=== PATIENT | male | born 1960 | race Caucasian/White ===

== ENCOUNTER 2016-09-19 20:18 | Inpatient (IN) | payer SELFPAY ==
[2016-09-19 20:25] VITALS: BMI 20.2
--- NOTE | 2016-09-19 21:56 | DR.GENAD ---
HPI - PCP Primary Care Physician: JACQUELINE - Complaint/Symptoms Chief Complaint:: LEFT LEG AND FOOT SWELLING AND PAIN X 4 DAYS - Source History Provided: Patient - Mode of Arrival Mode of Arrival: Ambulatory - Timing Onset of Chief Complaint: 09/16/16 PMH - PMH Past Medical History: No Past Surgical History: Yes Surgical History: Appendectomy, Tonsillectomy Past Surgical History Comment: GI ULCERS - Family History History of Family Medical Conditions: No - Social History Does patient currently use any type of tobacco product: Yes Have you used tobacco products in the last 12 months: Yes Type of Tobacco Use: Cigarettes Does any household member use tobacco: Yes Alcohol Use: Heavy Do you use any recreational Drugs:: Yes Lives With: Alone Lives Where: Home - infectious screening In the last 2 months have you had wt loss of >10#?: NO Have you had fever, night sweats or hemotysis?: No Have you traveled outside the country in the last 6 months?: No Isolation: Standard ROS - Review of Systems Eyes: No Symptoms Reported ENTM: No Symptoms Reported Respiratoy: No Symptoms Reported Cardiovascular: No Symptoms Reported Gastrointestinal/Abdominal: No Symptoms Reported Genitourinary: No Symptoms Reported Neurological: No Symptoms Reported Musculoskeletal: No Symptoms Reported, Leg (left swollen ) Integumentary: No Symptoms Reported Hematologic/Lymphatic: No Symptoms Reported Endocrine: No Symptoms Reported Psychiatric: No Symptoms Reported All Other Systems: Reviewed and Negative PE - Vital Signs Vitals: Temperature 97.9 F Pulse Rate 100 Respiratory Rate 18 Blood Pressure 137/100 O2 Sat by Pulse Oximetry 98 - General Limitations: No Limitations General Appearance: Alert, In No Apparent Distress - Head Head Exam: Normal Inspection, Atraumatic - Eyes Eye exam: Normal Appearance, PERRL, EOMI - ENT ENT Exam: Normal Exam, Normal Oropharynx External Ear Exam: Normal External Inspection TM/Canal Exam: Bilateral Normal Nose Exam: Normal Nose Exam Mouth Exam: Normal Inspection Throat Exam: Normal Inspection - Neck Neck Exam: Normal Inspection, Full ROM - Chest Chest Inspection: Normal Inspection - Respiratory Respiratory Exam: Normal Lung Sounds Bilat Respiratory Exam: Bilateral Clear to Auscultation - Cardiovascular Cardiovascular Exam: Regular Rate, Normal Rhythm - Abdominal Exam Abdominal Exam: Normal Inspection, Normal Bowel Sounds Abdominal Tenderness: negative: RUQ, RLQ, LUQ, LLQ, Epigastrium, Suprapubic, Diffuse, Mild, Moderate, Severe, Other - Extremities Extremities Exam: Normal Inspection, Edema, Calf Tenderness (left lower extremity) - Back Back Exam: Normal Inspection - Neurologic Neurological Exam: Alert, Oriented X3, CN II-XII Intact - Psychiatric Psychiatric Exam: Normal Affect - Skin Skin Exam: Warm, Dry, Intact ROR - Labs Reviewed Result Diagrams: 09/19/16 22:05 09/19/16 22:05 Laboratory: WBC 5.7 X10^3/uL (3.6-10.0) 09/19/16 22:05 RBC 4.88 X10^6/uL (4.7-6.0) 09/19/16 22:05 Hgb 15.4 g/dL (13.5-18.0) 09/19/16 22:05 Hct 44.2 % (42.0-54.0) 09/19/16 22:05 MCV 90.6 fL (80.0-100.0) 09/19/16 22:05 MCH 31.6 pg (27.0-34.0) 09/19/16 22:05 MCHC 34.8 g/dL (33.0-35.0) 09/19/16 22:05 RDW 14.2 % (11.6-16.5) 09/19/16 22:05 Plt Count 86 X10^3/uL (150.0-450.0) L 09/19/16 22:05 MPV 7.5 fL (7.4-11.0) 09/19/16 22:05 Neut % 53.7 % (42.0-75.0) 09/19/16 22:05 Lymph % 38.2 % (21.0-51.0) 09/19/16 22:05 [place] % 6.5 % (0.0-13.0) 09/19/16 22:05 Eos % 0.8 % (0.9-2.9) L 09/19/16 22:05 Baso % 0.8 % (0.2-1.0) 09/19/16 22:05 Neut # 3.0 x10^3/uL (2.2-4.8) 09/19/16 22:05 Lymph # 2.2 X10^3/uL (1.3-2.9) 09/19/16 22:05 [place] # 0.4 x10^3/uL (0.3-0.8) 09/19/16 22:05 Eos # 0.0 x10^3/uL (0.0-0.2) 09/19/16 22:05 Baso # 0.0 X10^3/uL (0.0-0.1) 09/19/16 22:05 Absolute Nucleated RBC 0.1 /100WBC 09/19/16 22:05 D-Dimer 4880 ng/mL (0-400) H* 09/19/16 22:05 Sodium 134 mmol/L (136-145) L 09/19/16 22:05 Corrected Sodium TNP 09/19/16 22:05 Potassium 3.7 mmol/L (3.5-5.1) 09/19/16 22:05 Chloride 97 mmol/L (98-107) L 09/19/16 22:05 Carbon Dioxide 28.5 mmol/L (21-32) 09/19/16 22:05 BUN 3 mg/dL (7-18) L 09/19/16 22:05 Creatinine 0.86 mg/dL (0.70-1.30) 09/19/16 22:05 Est GFR (MDRD) Af Amer > 60 (>60) 09/19/16 22:05 Est GFR (MDRD) Non-Af > 60 (>60) 09/19/16 22:05 Glucose 98 mg/dL (65-99) 09/19/16 22:05 Calcium 8.6 mg/dL (8.5-10.1) 09/19/16 22:05 Corrected Calcium TNP 09/19/16 22:05 Total Bilirubin 0.50 mg/dL (0.2-1.0) 09/19/16 22:05 AST 73 Units/L (15-37) H 09/19/16 22:05 ALT 63 Units/L (12-78) 09/19/16 22:05 Alkaline Phosphatase 98 Units/L (46-116) 09/19/16 22:05 Total Protein 7.1 g/dL (6.4-8.2) 09/19/16 22:05 Albumin 3.6 g/dL (3.4-5.0) 09/19/16 22:05 Globulin 3.5 g/dL (2.5-4.5) 09/19/16 22:05 Albumin/Globulin Ratio 1.0 Ratio (1.1-2.1) L 09/19/16 22:05 - XRAY XRAY Interpreted by: Radiologist (Lower extremity swelling/Pain: Evaluation of the deep veins of the left lower extremity from the common femoral vein through the popliteal vein demonstrated noncompresssibility of the distal superficial femoral vein. There was normal compressibility throughout the remainder of the deep venous system. Findings are consistent with a deep venous thrombus in the distal superficial femoral vein) - Diagnosis Discharge Problem: Deep venous thrombosis of distal vein of left lower extremity Qualifiers: Chronicity: acute Qualified Code(s): I82.4Z2 - Acute embolism and thrombosis of unspecified deep veins of left distal lower extremity - Discharge Plan Condition: Stable - Follow ups/Referrals Follow ups/Referrals: NFD,None [Primary Care Provider] - 3 days - Instructions
[2016-09-19 22:16] LABS: BASOPHILS % (AUTO) 0.8 % (0.2-1.0); EOSINOPHILS % (AUTO) 0.8 % (0.9-2.9); HEMATOCRIT 44.2 % (42.0-54.0); HEMOGLOBIN 15.4 g/dL (13.5-18.0); LYMPHOCYTES # (AUTO) 2.2 X10^3/uL (1.3-2.9); LYMPHOCYTES % (AUTO) 38.2 % (21.0-51.0); MEAN CORPUSCULAR HEMOGLOBIN 31.6 pg (27.0-34.0); MEAN CORPUSCULAR HGB CONC 34.8 g/dL (33.0-35.0); MEAN CORPUSCULAR VOLUME 90.6 fL (80.0-100.0); MEAN PLATELET VOLUME 7.5 fL (7.4-11.0); MONOCYTES # (AUTO) 0.4 x10^3/uL (0.3-0.8); MONOCYTES % (AUTO) 6.5 % (0.0-13.0); NEUTROPHILS % (AUTO) 53.7 % (42.0-75.0); PLATELET COUNT 86 X10^3/uL (150.0-450.0); RED BLOOD COUNT 4.88 X10^6/uL (4.7-6.0); RED CELL DISTRIBUTION WIDTH 14.2 % (11.6-16.5); WHITE BLOOD COUNT 5.7 X10^3/uL (3.6-10.0)
[2016-09-19 22:31] LABS: ALANINE AMINOTRANSFERASE 63 Units/L (12-78); ALBUMIN 3.6 g/dL (3.4-5.0); ALKALINE PHOSPHATASE 98 Units/L (46-116); ASPARTATE AMINO TRANSFERASE 73 Units/L (15-37); BLOOD UREA NITROGEN 3 mg/dL (7-18); CALCIUM 8.6 mg/dL (8.5-10.1); CARBON DIOXIDE 28.5 mmol/L (21-32); CHLORIDE 97 mmol/L (98-107); CREATININE 0.86 mg/dL (0.70-1.30); GLUCOSE 98 mg/dL (65-99); SODIUM 134 mmol/L (136-145); TOTAL PROTEIN 7.1 g/dL (6.4-8.2); eGFR BLACK RACES > 60 (>60); eGFR NON BLACK RACES > 60 (>60)
[2016-09-19 22:44] LABS: D DIMER 4880 ng/mL (0-400)
[2016-09-19] MEDS ORDERED: TYLENOL #3 TAB (W/CODEINE) PO ONE ×2 (22:55→22:57)
--- NOTE | 2016-09-19 23:36 | VAS ---
Exam: Left lower extremity ultrasound exam History: Lower extremity swelling/pain Comparison: None Technique: Real-time duplex scan of the lower extremity venous system was performed using B-mode/gra yscale imaging, Doppler spectral analysis, and color flow. Findings: Evaluation of the deep veins of the left lower extremity from the common femoral vein thr ough the popliteal vein demonstrated noncompressibility of the distal superficial femoral vein. The re was normal compressibility throughout the remainder of the deep venous system. Conclusion: Findings are consistent with a deep venous thrombus in the distal superficial femoral vein. Reported By:
[2016-09-19] MEDS ORDERED: MILK OF MAGNESIA PO PRN (23:58)
[2016-09-19] MEDS ORDERED: KAOPECTATE (NEW FORMULA) PO PRN (23:58)
[2016-09-19] MEDS ORDERED: MAALOX or MYLANTA PO PRN (23:58)
[2016-09-19] MEDS ORDERED: MOTRIN TAB 800 MG PO PRN (23:58)
[2016-09-19] MEDS ORDERED: PHENOBARBITAL SODIUM INJ 65 MG VIAL IM PRN (23:58)
[2016-09-20] MEDS: LOVENOX INJ 60 MG SYR SC SCH ×3 (00:12→20:37)
[2016-09-20] MEDS: AMBIEN PO SCH (01:32)
[2016-09-20] MEDS: NICODERM PATCH 21 MG/24 HR TD SCH ×2 (02:01→08:31)
[2016-09-20] MEDS: MAGNESIUM SULFATE 50% INJ IM SCH ×2 (02:33→08:32)
[2016-09-20] MEDS ORDERED: PREVNAR 13 IM ONE (03:05)
[2016-09-20] MEDS: PHENOBARBITAL TAB 30 MG (32.4MG) PO SCH ×4 (08:29→20:37)
[2016-09-20] MEDS ORDERED: THIAMINE HCL INJ IM SCH (09:00)
[2016-09-20] MEDS ORDERED: NS 100 ML IV 100 ML IV ONE (09:41)
--- NOTE | 2016-09-20 10:36 | CT ---
HISTORY: The DVT and left distal superficial femoral vein. Study: CT chest with contrast Comparison: Left lower extremity ultrasound dated September 19, 2016. Technique: Multiple axial images of the chest were obtained from the thoracic inlet to the upper abd omen after the administration of IV contrast. Dose reduction techniques including Automated Exposur e Control (AEC) and adjustment of mA and kV were utilized. Findings: The mediastinum does not demonstrate significant pathological lymphadenopathy. There is no paracard ial effusion observed. The thoracic aorta is normal in its contour without evidence for aneurysmal dilatation. Tiny filling defect within a subsegmental branch of the left pulmonary artery within th e lingula (series 4 images 57-59 and series 8 images 18 and 19). No other obvious filling defects. T here is some reflux of contrast into the IVC. This may represent some right heart failure. No obviou s RV strain. Biapical scarring. Evaluation of the lung parenchyma fails to demonstrate focal consolidation or eff usion. No pulmonary nodule or mass can be identified. The bony thorax is unremarkable in its appea dario. Diffuse fatty infiltration of the liver, with focal fatty sparing at the gallbladder fossa. Multiple surgical clips seen about the distal esophagus. Otherwise, the visualized portions of the u pper abdomen are grossly unremarkable. IMPRESSION: 1. Tiny filling defect within a subsegmental branch of the left pulmonary artery consistent with pu lmonary embolus. No other filling defects are noted. 2. Other chronic findings as above. Reported By:
--- NOTE | 2016-09-20 10:38 | RAD ---
HISTORY: Left ankle pain, nontraumatic Study: Left ankle three view Comparison: None Findings: No acute cortical disruption or dislocation can be identified. The ankle mortise remains well align ed. No significant soft tissue swelling or injury can be seen. The visualized portions of the talu s and calcaneus are unremarkable. IMPRESSION: 1. Negative exam. Reported By:
--- NOTE | 2016-09-20 10:39 | RAD ---
HISTORY: Left foot pain, nontraumatic Study: Left foot three view Comparison: None Findings: No acute cortical disruption or dislocation can be identified. No significant soft tissue swelling or injury can be seen. The visualized portions of the talus and calcaneus are unremarkable. The michelle nts are normal. IMPRESSION: 1. Negative exam. Reported By:
[2016-09-20] MEDS: PERCOCET TAB 5/325 MG PO PRN ×2 (12:28→19:19)
--- NOTE | 2016-09-20 17:19 | DR.H&P ---
H&P - History & Physical for Day of: H&P Date: 09/19/16 - Chief Complaint Chief Complaint: SEVERE LEFT LOWER LEG/FOOT PAIN - Allergies Allergies/Adverse Reactions: Allergies Allergy/AdvReac Type Severity Reaction Status Date / Time No Known Drug Allergy Allergy Verified 09/19/16 20:25 - History of Present Illness History of Present Illness: 55 WM ADMITTED FROM ER WITH ACUTE LLE DVT. PT STATES HE HAS HAD INCREASE LLE PAIN AND SWELLING FOR LAST 3-4 DAYS, PT UNABLE TO BEAR WEIGHT DO TO PAIN. PT ADMITTED FOR LOVENOX THERAPY AND TREATMENT OF ETOH INTOXICATION. PT HX PMH OF TOBACCO ABUSE AND ETOH USE. PT DENIES HTN OR DM. - Past Medical History Past Medical History: GERD - Past Surgical History Surgical History: Appendectomy, Tonsillectomy - Family History Family Medical History: Diabetes Mellitus, Cancer, [place], Heart Failure, Hypertension - Social History Does patient currently use any type of tobacco product: Yes Have you used tobacco products in the last 12 months: Yes Type of Tobacco Use: Cigarettes How many years tobacco product used: 40 Does any household member use tobacco: No Alcohol Use: DAILY Drug Use: None - Medications Home Medications: NK [NK] 09/19/16 [History Confirmed 09/19/16] - Review of Systems Constitutional: Weakness Eyes: No Symptoms Reported ENT: No Symptoms Reported Respiratory: Shortness of Breath Cardiovascular: No Symptoms Reported Gastrointestinal: No Symptoms Reported Genitourinary: No Symptoms Reported Musculoskeletal: Leg Pain, Foot Pain Skin: No Symptoms Reported Neurological: No Symptoms Reported - Physical Exam Vital Signs: Temperature 99.7 F Pulse Rate [Right] 62 Respiratory Rate 18 Blood Pressure [Right Arm] 111/77 O2 Sat by Pulse Oximetry 97 Oriented: Normal Eyes: Normal Ear: Normal Nose: Normal Throat: Normal Respiratory: RLL Diminished, LLL Diminished Cardiovascular: Normal : Normal Auscultation: Bowel Sounds: Normal Palpation: Normal Tenderness: Normal Skin: Red (LLE), Tender, Hot Musculoskeletal: Left, Leg, Ankle, Foot Psychiatric: Anxiety Speech Pattern: Clear, Appropriate - Assessment/Plan (1) Deep venous thrombosis of distal vein of left lower extremity Qualifiers: Chronicity: acute Qualified Code(s): I82.4Z2 - Acute embolism and thrombosis of unspecified deep veins of left distal lower extremity Status: Acute Plan: ADMIT FOR TREATMENT OF ACUTE DVT, DETOX PROTOCOL. REPEAT AM LABS. SUPPLEMENTAL O2, CARDIAC MONITORING (2) Elevated ETOH level Qualifiers: Blood alcohol level: B Status: Acute
--- NOTE | 2016-09-20 17:23 | PCM.PROG ---
Progress Note - Progress Note for Day of Date: 09/20/16 - Subjective Subjective: LLE PAIN - Past Medical Family Social History Past Med/Fam/Surg Hx: No changes since H&P Allergies: Allergies No Known Drug Allergy Allergy (Verified 09/19/16 20:25) - Review of Systems ROS: No change since H&P - Vital Signs and I&O's Vital Signs: Temperature 99.7 F Pulse Rate [Right] 62 Respiratory Rate 18 Blood Pressure [Right Arm] 111/77 O2 Sat by Pulse Oximetry 97 Intake and Output: Intake & Output 09/18/16 09/19/16 09/20/16 09/21/16 11:59 11:59 11:59 11:59 Intake Total 440 1530 Output Total 200 1000 Balance 240 530 - Physical Exam Oriented: Normal Eyes: Normal Ear: Normal Nose: Normal Throat: Normal Respiratory: Wheezes (BILATERAL LOWER EXP WHEEZES) Cardiovascular: Normal : Normal Auscultation: Bowel Sounds: Normal Tenderness: Normal Skin: Red (LLE), Tender, Hot Musculoskeletal: Left, Leg, Ankle, Foot Psychiatric: Anxiety Mood Description: Anxious Speech Pattern: Clear, Appropriate - Laboratory and Diagnostics Result Diagrams: 09/19/16 22:05 09/19/16 22:05 Labs: Laboratory WBC 5.7 X10^3/uL (3.6-10.0) 09/19/16 22:05 RBC 4.88 X10^6/uL (4.7-6.0) 09/19/16 22:05 Hgb 15.4 g/dL (13.5-18.0) 09/19/16 22:05 Hct 44.2 % (42.0-54.0) 09/19/16 22:05 MCV 90.6 fL (80.0-100.0) 09/19/16 22:05 MCH 31.6 pg (27.0-34.0) 09/19/16 22:05 MCHC 34.8 g/dL (33.0-35.0) 09/19/16 22:05 RDW 14.2 % (11.6-16.5) 09/19/16 22:05 Plt Count 86 X10^3/uL (150.0-450.0) L 09/19/16 22:05 MPV 7.5 fL (7.4-11.0) 09/19/16 22:05 Neut % 53.7 % (42.0-75.0) 09/19/16 22:05 Lymph % 38.2 % (21.0-51.0) 09/19/16 22:05 [place] % 6.5 % (0.0-13.0) 09/19/16 22:05 Eos % 0.8 % (0.9-2.9) L 09/19/16 22:05 Baso % 0.8 % (0.2-1.0) 09/19/16 22:05 Neut # 3.0 x10^3/uL (2.2-4.8) 09/19/16 22:05 Lymph # 2.2 X10^3/uL (1.3-2.9) 09/19/16 22:05 [place] # 0.4 x10^3/uL (0.3-0.8) 09/19/16 22:05 Eos # 0.0 x10^3/uL (0.0-0.2) 09/19/16 22:05 Baso # 0.0 X10^3/uL (0.0-0.1) 09/19/16 22:05 Absolute Nucleated RBC 0.1 /100WBC 09/19/16 22:05 INR Target Range - 09/19/16 22:05 INR 1.02 (0.8-1.3) 09/19/16 22:05 PTT 32.0 SECONDS (22.9-36.5) 09/19/16 22:05 PTT Comment - 09/19/16 22:05 D-Dimer 4880 ng/mL (0-400) H* 09/19/16 22:05 Sodium 134 mmol/L (136-145) L 09/19/16 22:05 Corrected Sodium TNP 09/19/16 22:05 Potassium 3.7 mmol/L (3.5-5.1) 09/19/16 22:05 Chloride 97 mmol/L (98-107) L 09/19/16 22:05 Carbon Dioxide 28.5 mmol/L (21-32) 09/19/16 22:05 BUN 3 mg/dL (7-18) L 09/19/16 22:05 Creatinine 0.86 mg/dL (0.70-1.30) 09/19/16 22:05 Est GFR (MDRD) Af Amer > 60 (>60) 09/19/16 22:05 Est GFR (MDRD) Non-Af > 60 (>60) 09/19/16 22:05 Glucose 98 mg/dL (65-99) 09/19/16 22:05 Calcium 8.6 mg/dL (8.5-10.1) 09/19/16 22:05 Corrected Calcium TNP 09/19/16 22:05 Total Bilirubin 0.50 mg/dL (0.2-1.0) 09/19/16 22:05 AST 73 Units/L (15-37) H 09/19/16 22:05 ALT 63 Units/L (12-78) 09/19/16 22:05 Alkaline Phosphatase 98 Units/L (46-116) 09/19/16 22:05 Total Protein 7.1 g/dL (6.4-8.2) 09/19/16 22:05 Albumin 3.6 g/dL (3.4-5.0) 09/19/16 22:05 Globulin 3.5 g/dL (2.5-4.5) 09/19/16 22:05 Albumin/Globulin Ratio 1.0 Ratio (1.1-2.1) L 09/19/16 22:05 Ethyl Alcohol mg/dL 367 mg/dL (0-19.9) H 09/19/16 00:28 - Plan (1) Deep venous thrombosis of distal vein of left lower extremity Status: Acute Qualifiers: Chronicity: acute Qualified Code(s): I82.4Z2 - Acute embolism and thrombosis of unspecified deep veins of left distal lower extremity Plan: CONTINUE LOVENOX, CTA LUNG TODAY R/O PE. RESP CONSULT, SUPPLEMENTAL O2 (2) Elevated ETOH level Status: Acute Qualifiers: Blood alcohol level: B Plan: CONTINUE DETOX PROTOCOL
[2016-09-20] MEDS: LIBRIUM PO PRN (19:20)
[2016-09-21] MEDS: AMBIEN PO SCH ×3 (00:33→21:24)
[2016-09-21] MEDS: PERCOCET TAB 5/325 MG PO PRN ×4 (01:48→21:23)
--- NOTE | 2016-09-21 06:03 | RAD ---
HISTORY: Chest pain, COPD Study: Chest one view Comparison: None Findings: The trachea is midline. The cardiac silhouette is unremarkable. The lungs are clear without focal infiltrate or effusion. The bony thorax is unremarkable. IMPRESSION: 1. No acute cardiopulmonary disease. Reported By:
[2016-09-21 06:25] LABS: BASOPHILS % (AUTO) 0.6 % (0.2-1.0); EOSINOPHILS # (AUTO) 0.1 x10^3/uL (0.0-0.2); EOSINOPHILS % (AUTO) 2.3 % (0.9-2.9); HEMATOCRIT 42.2 % (42.0-54.0); HEMOGLOBIN 14.5 g/dL (13.5-18.0); LYMPHOCYTES # (AUTO) 1.8 X10^3/uL (1.3-2.9); MEAN CORPUSCULAR HEMOGLOBIN 31.5 pg (27.0-34.0); MEAN CORPUSCULAR HGB CONC 34.4 g/dL (33.0-35.0); MEAN CORPUSCULAR VOLUME 91.4 fL (80.0-100.0); MEAN PLATELET VOLUME 8.4 fL (7.4-11.0); MONOCYTES # (AUTO) 0.5 x10^3/uL (0.3-0.8); MONOCYTES % (AUTO) 9.9 % (0.0-13.0); NEUTROPHILS # (AUTO) 2.3 x10^3/uL (2.2-4.8); NEUTROPHILS % (AUTO) 48.2 % (42.0-75.0); PLATELET COUNT 73 X10^3/uL (150.0-450.0); RED BLOOD COUNT 4.62 X10^6/uL (4.7-6.0); RED CELL DISTRIBUTION WIDTH 14.6 % (11.6-16.5); WHITE BLOOD COUNT 4.7 X10^3/uL (3.6-10.0)
[2016-09-21 06:36] LABS: TOTAL PSA 0.97 ng/mL (0.13-4.0)
[2016-09-21 06:43] LABS: ALANINE AMINOTRANSFERASE 55 Units/L (12-78); ALBUMIN 3.2 g/dL (3.4-5.0); ALKALINE PHOSPHATASE 95 Units/L (46-116); ASPARTATE AMINO TRANSFERASE 53 Units/L (15-37); BLOOD UREA NITROGEN 4 mg/dL (7-18); CALCIUM 8.6 mg/dL (8.5-10.1); CARBON DIOXIDE 30.7 mmol/L (21-32); CHLORIDE 102 mmol/L (98-107); COR CA(FOR HYPOALB) 9.2 mg/dL (8.5-10.1); CREATININE 0.78 mg/dL (0.70-1.30); GLUCOSE 77 mg/dL (65-99); SODIUM 137 mmol/L (136-145); TOTAL PROTEIN 6.5 g/dL (6.4-8.2); eGFR BLACK RACES > 60 (>60); eGFR NON BLACK RACES > 60 (>60)
[2016-09-21] MEDS: LOVENOX INJ 60 MG SYR SC SCH ×2 (09:33→21:22)
[2016-09-21] MEDS: NICODERM PATCH 21 MG/24 HR TD SCH (09:34)
[2016-09-21] MEDS: PHENOBARBITAL TAB 30 MG (32.4MG) PO SCH ×4 (09:34→21:23)
[2016-09-21] MEDS: LIBRIUM PO PRN (11:28)
--- NOTE | 2016-09-21 13:19 | PCM.PROG ---
Progress Note - Progress Note for Day of Date: 09/21/16 - Subjective Subjective: LLE PAIN, ANXIOUS. PT HAS PMH DAILY ETOH DRINKER AND STATES HE IS QUITING. PT HAS HX GASTRIC ULCERS. STARTED ON PROTONIX BID, CONTINUE LOVENOX. REPEAT AM LABS - Past Medical Family Social History Past Med/Fam/Surg Hx: No changes since H&P Allergies: Allergies No Known Drug Allergy Allergy (Verified 09/19/16 20:25) - Review of Systems ROS: No change since H&P - Vital Signs and I&O's Vital Signs: Temperature 98.6 F Pulse Rate [Right] 62 Respiratory Rate 18 Blood Pressure [Right Arm] 130/77 O2 Sat by Pulse Oximetry 98 Intake and Output: Intake & Output 09/19/16 09/20/16 09/21/16 09/22/16 11:59 11:59 11:59 11:59 Intake Total 440 2080 Output Total 200 1000 Balance 240 1080 - Physical Exam Oriented: Normal Eyes: Normal Ear: Normal Nose: Normal Throat: Normal Respiratory: Wheezes (BILATERAL LOWER EXP WHEEZES) Cardiovascular: Normal : Normal Auscultation: Bowel Sounds: Normal Tenderness: Normal Skin: Red (LLE), Tender, Hot Musculoskeletal: Left, Leg, Ankle, Foot Psychiatric: Anxiety Mood Description: Anxious Speech Pattern: Clear, Appropriate - Laboratory and Diagnostics Result Diagrams: 09/21/16 04:50 09/21/16 04:50 Labs: Laboratory WBC 4.7 X10^3/uL (3.6-10.0) 09/21/16 04:50 RBC 4.62 X10^6/uL (4.7-6.0) L 09/21/16 04:50 Hgb 14.5 g/dL (13.5-18.0) 09/21/16 04:50 Hct 42.2 % (42.0-54.0) 09/21/16 04:50 MCV 91.4 fL (80.0-100.0) 09/21/16 04:50 MCH 31.5 pg (27.0-34.0) 09/21/16 04:50 MCHC 34.4 g/dL (33.0-35.0) 09/21/16 04:50 RDW 14.6 % (11.6-16.5) 09/21/16 04:50 Plt Count 73 X10^3/uL (150.0-450.0) L 09/21/16 04:50 MPV 8.4 fL (7.4-11.0) 09/21/16 04:50 Neut % 48.2 % (42.0-75.0) 09/21/16 04:50 Lymph % 39.0 % (21.0-51.0) 09/21/16 04:50 [place] % 9.9 % (0.0-13.0) 09/21/16 04:50 Eos % 2.3 % (0.9-2.9) 09/21/16 04:50 Baso % 0.6 % (0.2-1.0) 09/21/16 04:50 Neut # 2.3 x10^3/uL (2.2-4.8) 09/21/16 04:50 Lymph # 1.8 X10^3/uL (1.3-2.9) 09/21/16 04:50 [place] # 0.5 x10^3/uL (0.3-0.8) 09/21/16 04:50 Eos # 0.1 x10^3/uL (0.0-0.2) 09/21/16 04:50 Baso # 0.0 X10^3/uL (0.0-0.1) 09/21/16 04:50 Absolute Nucleated RBC 0.1 /100WBC 09/21/16 04:50 INR Target Range - 09/19/16 22:05 INR 1.02 (0.8-1.3) 09/19/16 22:05 PTT 32.0 SECONDS (22.9-36.5) 09/19/16 22:05 PTT Comment - 09/19/16 22:05 D-Dimer 4880 ng/mL (0-400) H* 09/19/16 22:05 Sodium 137 mmol/L (136-145) 09/21/16 04:50 Corrected Sodium TNP 09/21/16 04:50 Potassium 3.6 mmol/L (3.5-5.1) 09/21/16 04:50 Chloride 102 mmol/L (98-107) 09/21/16 04:50 Carbon Dioxide 30.7 mmol/L (21-32) 09/21/16 04:50 BUN 4 mg/dL (7-18) L 09/21/16 04:50 Creatinine 0.78 mg/dL (0.70-1.30) 09/21/16 04:50 Est GFR (MDRD) Af Amer > 60 (>60) 09/21/16 04:50 Est GFR (MDRD) Non-Af > 60 (>60) 09/21/16 04:50 Glucose 77 mg/dL (65-99) 09/21/16 04:50 Calcium 8.6 mg/dL (8.5-10.1) 09/21/16 04:50 Corrected Calcium 9.2 mg/dL (8.5-10.1) 09/21/16 04:50 Total Bilirubin 0.80 mg/dL (0.2-1.0) 09/21/16 04:50 AST 53 Units/L (15-37) H 09/21/16 04:50 ALT 55 Units/L (12-78) 09/21/16 04:50 Alkaline Phosphatase 95 Units/L (46-116) 09/21/16 04:50 Total Protein 6.5 g/dL (6.4-8.2) 09/21/16 04:50 Albumin 3.2 g/dL (3.4-5.0) L 09/21/16 04:50 Globulin 3.3 g/dL (2.5-4.5) 09/21/16 04:50 Albumin/Globulin Ratio 1.0 Ratio (1.1-2.1) L 09/21/16 04:50 Total PSA 0.97 ng/mL (0.13-4.0) 09/21/16 04:50 Ethyl Alcohol mg/dL 367 mg/dL (0-19.9) H 09/19/16 00:28 - Plan (1) Deep venous thrombosis of distal vein of left lower extremity Status: Acute Qualifiers: Chronicity: acute Qualified Code(s): I82.4Z2 - Acute embolism and thrombosis of unspecified deep veins of left distal lower extremity Plan: CONTINUE LOVENOX, CTA LUNG TODAY R/O PE. RESP CONSULT, SUPPLEMENTAL O2 (2) Elevated ETOH level Status: Acute Qualifiers: Blood alcohol level: B Plan: CONTINUE DETOX PROTOCOL (3) GERD (gastroesophageal reflux disease) Status: Acute Qualifiers: Esophagitis presence: E Plan: HX GASTRIC ULCERS. PROTONIX BID (4) Anxiety Status: Acute Plan: LEXAPRO 10MG PO DAILY
[2016-09-21] MEDS ORDERED: LEXAPRO ONE (15:02)
[2016-09-21] MEDS: PROTONIX INJ 40 MG VIAL IVP SCH ×2 (15:12→21:22)
[2016-09-21] MEDS: LEXAPRO PO SCH (15:12)
[2016-09-22] MEDS: PERCOCET TAB 5/325 MG PO PRN (05:11)
[2016-09-22] MEDS: LIBRIUM PO PRN (05:11)
[2016-09-22 06:10] LABS: BASOPHILS % (AUTO) 0.6 % (0.2-1.0); EOSINOPHILS # (AUTO) 0.2 x10^3/uL (0.0-0.2); EOSINOPHILS % (AUTO) 3.4 % (0.9-2.9); HEMOGLOBIN 14.9 g/dL (13.5-18.0); LYMPHOCYTES # (AUTO) 1.9 X10^3/uL (1.3-2.9); LYMPHOCYTES % (AUTO) 33.9 % (21.0-51.0); MEAN CORPUSCULAR HEMOGLOBIN 31.6 pg (27.0-34.0); MEAN CORPUSCULAR HGB CONC 34.6 g/dL (33.0-35.0); MEAN CORPUSCULAR VOLUME 91.5 fL (80.0-100.0); MEAN PLATELET VOLUME 8.7 fL (7.4-11.0); MONOCYTES # (AUTO) 0.4 x10^3/uL (0.3-0.8); MONOCYTES % (AUTO) 7.9 % (0.0-13.0); NEUTROPHILS % (AUTO) 54.2 % (42.0-75.0); PLATELET COUNT 76 X10^3/uL (150.0-450.0); RED CELL DISTRIBUTION WIDTH 14.3 % (11.6-16.5); WHITE BLOOD COUNT 5.6 X10^3/uL (3.6-10.0)
--- NOTE | 2016-09-22 06:31 | RAD ---
HISTORY: Shortness of breath Study: Chest one view Comparison: September 21, 2016 Findings: The trachea is midline. The cardiac silhouette is unremarkable. The lungs are clear without focal infiltrate or effusion. The bony thorax is unremarkable. IMPRESSION: 1. No acute cardiopulmonary disease. Reported By:
[2016-09-22 06:32] LABS: ALANINE AMINOTRANSFERASE 45 Units/L (12-78); ALBUMIN 3.1 g/dL (3.4-5.0); ALKALINE PHOSPHATASE 92 Units/L (46-116); ASPARTATE AMINO TRANSFERASE 42 Units/L (15-37); BLOOD UREA NITROGEN 6 mg/dL (7-18); CALCIUM 8.6 mg/dL (8.5-10.1); CARBON DIOXIDE 26.8 mmol/L (21-32); CHLORIDE 101 mmol/L (98-107); COR CA(FOR HYPOALB) 9.3 mg/dL (8.5-10.1); CREATININE 0.72 mg/dL (0.70-1.30); GLUCOSE 67 mg/dL (65-99); SODIUM 139 mmol/L (136-145); TOTAL PROTEIN 6.4 g/dL (6.4-8.2); eGFR BLACK RACES > 60 (>60); eGFR NON BLACK RACES > 60 (>60)
[2016-09-22] MEDS ORDERED: LEXAPRO ONE (08:43)
[2016-09-22] MEDS ORDERED: FLEXERIL TAB 10 MG PO PRN (09:34)
[2016-09-22] MEDS: NICODERM PATCH 21 MG/24 HR TD SCH (09:48)
[2016-09-22] MEDS: PHENOBARBITAL TAB 30 MG (32.4MG) PO SCH ×4 (10:04→21:33)
[2016-09-22] MEDS: TORADOL 30 MG VIAL IVP SCH ×3 (10:04→21:34)
[2016-09-22] MEDS: LOVENOX INJ 60 MG SYR SC SCH (10:04)
[2016-09-22] MEDS: LEXAPRO PO SCH (10:04)
[2016-09-22] MEDS: PROTONIX INJ 40 MG VIAL IVP SCH ×2 (10:05→21:33)
--- NOTE | 2016-09-22 18:11 | PCM.PROG ---
Progress Note - Progress Note for Day of Date: 09/22/16 - Subjective Subjective: LLE PAIN, ANXIOUS. PT HAS PMH DAILY ETOH DRINKER AND STATES HE IS QUITING. PT HAS HX GASTRIC ULCERS, ON PROTONIX BID, CONTINUE D/C LOVENOX WILL START ON ELIQUIS BID, DISCUSSED DC HOME TOMORROW. REPEAT AM LABS - Past Medical Family Social History Past Med/Fam/Surg Hx: No changes since H&P Allergies: Allergies [place] No Known Drug Allergy [No Known Drug Allergy] Allergy (Verified 09/19/16 20: 25) - Review of Systems ROS: No change since H&P - Vital Signs and I&O's Vital Signs: Temperature 98.2 F Pulse Rate [Right] 68 Respiratory Rate 22 Blood Pressure [Right Arm] 93/59 O2 Sat by Pulse Oximetry 96 Intake and Output: Intake & Output 09/20/16 09/21/16 09/22/16 09/23/16 11:59 11:59 11:59 11:59 Intake Total 440 2080 1100 750 Output Total 200 1000 Balance 240 1080 1100 750 - Physical Exam Oriented: Normal Eyes: Normal Ear: Normal Nose: Normal Throat: Normal Respiratory: Wheezes (BILATERAL LOWER EXP WHEEZES) Cardiovascular: Normal : Normal Auscultation: Bowel Sounds: Normal Tenderness: Normal Skin: Red (LLE), Tender, Hot Musculoskeletal: Left, Leg, Ankle, Foot Psychiatric: Anxiety Mood Description: Anxious Speech Pattern: Clear, Appropriate - Laboratory and Diagnostics Result Diagrams: 09/22/16 03:10 09/22/16 03:10 Labs: Laboratory WBC 5.6 X10^3/uL (3.6-10.0) 09/22/16 03:10 RBC 4.70 X10^6/uL (4.7-6.0) 09/22/16 03:10 Hgb 14.9 g/dL (13.5-18.0) 09/22/16 03:10 Hct 43.0 % (42.0-54.0) 09/22/16 03:10 MCV 91.5 fL (80.0-100.0) 09/22/16 03:10 MCH 31.6 pg (27.0-34.0) 09/22/16 03:10 MCHC 34.6 g/dL (33.0-35.0) 09/22/16 03:10 RDW 14.3 % (11.6-16.5) 09/22/16 03:10 Plt Count 76 X10^3/uL (150.0-450.0) L 09/22/16 03:10 MPV 8.7 fL (7.4-11.0) 09/22/16 03:10 Neut % 54.2 % (42.0-75.0) 09/22/16 03:10 Lymph % 33.9 % (21.0-51.0) 09/22/16 03:10 [place] % 7.9 % (0.0-13.0) 09/22/16 03:10 Eos % 3.4 % (0.9-2.9) H 09/22/16 03:10 Baso % 0.6 % (0.2-1.0) 09/22/16 03:10 Neut # 3.0 x10^3/uL (2.2-4.8) 09/22/16 03:10 Lymph # 1.9 X10^3/uL (1.3-2.9) 09/22/16 03:10 [place] # 0.4 x10^3/uL (0.3-0.8) 09/22/16 03:10 Eos # 0.2 x10^3/uL (0.0-0.2) 09/22/16 03:10 Baso # 0.0 X10^3/uL (0.0-0.1) 09/22/16 03:10 Absolute Nucleated RBC 0.5 /100WBC 09/22/16 03:10 INR Target Range - 09/19/16 22:05 INR 1.02 (0.8-1.3) 09/19/16 22:05 PTT 32.0 SECONDS (22.9-36.5) 09/19/16 22:05 PTT Comment - 09/19/16 22:05 D-Dimer 4880 ng/mL (0-400) H* 09/19/16 22:05 Sodium 139 mmol/L (136-145) 09/22/16 03:10 Corrected Sodium TNP 09/22/16 03:10 Potassium 3.5 mmol/L (3.5-5.1) 09/22/16 03:10 Chloride 101 mmol/L (98-107) 09/22/16 03:10 Carbon Dioxide 26.8 mmol/L (21-32) 09/22/16 03:10 BUN 6 mg/dL (7-18) L 09/22/16 03:10 Creatinine 0.72 mg/dL (0.70-1.30) 09/22/16 03:10 Est GFR (MDRD) Af Amer > 60 (>60) 09/22/16 03:10 Est GFR (MDRD) Non-Af > 60 (>60) 09/22/16 03:10 Glucose 67 mg/dL (65-99) 09/22/16 03:10 Calcium 8.6 mg/dL (8.5-10.1) 09/22/16 03:10 Corrected Calcium 9.3 mg/dL (8.5-10.1) 09/22/16 03:10 Total Bilirubin 0.60 mg/dL (0.2-1.0) 09/22/16 03:10 AST 42 Units/L (15-37) H 09/22/16 03:10 ALT 45 Units/L (12-78) 09/22/16 03:10 Alkaline Phosphatase 92 Units/L (46-116) 09/22/16 03:10 Total Protein 6.4 g/dL (6.4-8.2) 09/22/16 03:10 Albumin 3.1 g/dL (3.4-5.0) L 09/22/16 03:10 Globulin 3.3 g/dL (2.5-4.5) 09/22/16 03:10 Albumin/Globulin Ratio 0.9 Ratio (1.1-2.1) L 09/22/16 03:10 Total PSA 0.97 ng/mL (0.13-4.0) 09/21/16 04:50 Ethyl Alcohol mg/dL 367 mg/dL (0-19.9) H 09/19/16 00:28 - Plan (1) Deep venous thrombosis of distal vein of left lower extremity Status: Acute Qualifiers: Chronicity: acute Qualified Code(s): I82.4Z2 - Acute embolism and thrombosis of unspecified deep veins of left distal lower extremity Plan: D/C LOVENOX, START ON PO ELIQUIS. DISCUSSED D/C HOME TOMORROW. RESP CONSULT, SUPPLEMENTAL O2 (2) Elevated ETOH level Status: Acute Qualifiers: Blood alcohol level: B Plan: CONTINUE DETOX PROTOCOL (3) GERD (gastroesophageal reflux disease) Status: Acute Qualifiers: Esophagitis presence: E Plan: HX GASTRIC ULCERS. PROTONIX BID (4) Anxiety Status: Acute Plan: LEXAPRO 10MG PO DAILY
[2016-09-22] MEDS: NEURONTIN CAP 300 MG PO SCH ×2 (19:43→22:31)
[2016-09-22] MEDS: AMBIEN PO SCH (21:32)
[2016-09-22] MEDS: ELIQUIS PO SCH (21:33)
[2016-09-22] MEDS ORDERED: PHENOBARBITAL TAB 15 MG (16.2MG) PO SCH (23:58)
[2016-09-23] MEDS: TORADOL 30 MG VIAL IVP SCH ×2 (04:53→10:17)
[2016-09-23] MEDS: NEURONTIN CAP 300 MG PO SCH ×2 (05:00→14:03)
[2016-09-23 05:08] LABS: EOSINOPHILS # (AUTO) 0.2 x10^3/uL (0.0-0.2); MONOCYTES # (AUTO) 0.5 x10^3/uL (0.3-0.8)
[2016-09-23 05:14] LABS: BASOPHILS % (AUTO) 0.7 % (0.2-1.0); EOSINOPHILS % (AUTO) 3.7 % (0.9-2.9); HEMATOCRIT 41.6 % (42.0-54.0); HEMOGLOBIN 14.2 g/dL (13.5-18.0); LYMPHOCYTES # (AUTO) 1.7 X10^3/uL (1.3-2.9); MEAN CORPUSCULAR HEMOGLOBIN 31.5 pg (27.0-34.0); MEAN CORPUSCULAR HGB CONC 34.1 g/dL (33.0-35.0); MEAN CORPUSCULAR VOLUME 92.4 fL (80.0-100.0); MEAN PLATELET VOLUME 9.2 fL (7.4-11.0); MONOCYTES % (AUTO) 9.5 % (0.0-13.0); NEUTROPHILS % (AUTO) 55.1 % (42.0-75.0); PLATELET COUNT 79 X10^3/uL (150.0-450.0); RED BLOOD COUNT 4.51 X10^6/uL (4.7-6.0); RED CELL DISTRIBUTION WIDTH 14.5 % (11.6-16.5); WHITE BLOOD COUNT 5.5 X10^3/uL (3.6-10.0)
[2016-09-23 05:24] LABS: ALANINE AMINOTRANSFERASE 40 Units/L (12-78); ALBUMIN 2.8 g/dL (3.4-5.0); ALKALINE PHOSPHATASE 95 Units/L (46-116); ASPARTATE AMINO TRANSFERASE 33 Units/L (15-37); BLOOD UREA NITROGEN 10 mg/dL (7-18); CALCIUM 8.4 mg/dL (8.5-10.1); CARBON DIOXIDE 27.3 mmol/L (21-32); CHLORIDE 105 mmol/L (98-107); COR CA(FOR HYPOALB) 9.4 mg/dL (8.5-10.1); CREATININE 0.73 mg/dL (0.70-1.30); GLUCOSE 90 mg/dL (65-99); SODIUM 141 mmol/L (136-145); eGFR BLACK RACES > 60 (>60); eGFR NON BLACK RACES > 60 (>60)
--- NOTE | 2016-09-23 06:21 | RAD ---
HISTORY: COPD Study: Chest one view Comparison: September 22, 2016 Findings: The trachea is midline. The cardiac silhouette is unremarkable. The lungs are clear without focal infiltrate or effusion. The bony thorax is unremarkable. IMPRESSION: 1. No acute cardiopulmonary disease. Reported By:
[2016-09-23] MEDS ORDERED: LEXAPRO ONE (08:06)
[2016-09-23] MEDS: ELIQUIS PO SCH (08:12)
[2016-09-23] MEDS: LIBRIUM PO PRN (08:12)
[2016-09-23] MEDS: PROTONIX INJ 40 MG VIAL IVP SCH (08:12)
[2016-09-23] MEDS: PERCOCET TAB 5/325 MG PO PRN (08:12)
[2016-09-23] MEDS: LEXAPRO PO SCH (08:13)
[2016-09-23] MEDS: PHENOBARBITAL TAB 15 MG (16.2MG) PO SCH ×2 (08:13→14:03)
[2016-09-23] MEDS: NICODERM PATCH 21 MG/24 HR TD SCH (08:45)
--- NOTE | 2016-09-23 10:19 | RAD ---
HISTORY: Abdominal pain. Study: KUB. Comparison: None. Findings: Evaluation of the abdomen demonstrates a nonspecific/nonobstructive bowel gas pattern with air and s tool to the level of the rectum. No obvious free air. The lung bases are clear. No pathological sof t tissue mass or calcification can be observed. The bony structures are grossly intact. IMPRESSION: 1. No evidence for acute abdominal pathology identified. Reported By:
[2016-09-23 12:36] VITALS: BP 130/77
== END 2016-09-23 14:10 | disposition home or self-care (01) | DRG 301 ==
LOC: ER 20:30 → ICU 09-20
PROVIDERS: ADMIT Internal Medicine; ATTEND Internal Medicine
PROC: 3E0234Z Introduction of Serum, Toxoid and Vaccine into Muscle, Percutaneous Approach (ICD-10-PCS; principal; 2016-09-20)
DX: I82.412 Acute embolism and thrombosis of left femoral vein (principal); F10.129 Alcohol abuse with intoxication, unspecified; Z72.0 Tobacco use; K21.9 Gastro-esophageal reflux disease without esophagitis; F41.8 Other specified anxiety disorders; Z87.19 Personal history of other diseases of the digestive system; Z23 Encounter for immunization
CPT/HCPCS: 36415; 71010; 71275; 73610; 73630; 74000; 80053; 80320; 84153; 85025; 85378; 85610; 85730; 93971; 96365; 96372; 96374; 99284; A4216; A4222; C9113; 90670; G6040; J1650; J1885; J2560; J3411; J3475

== ENCOUNTER 2016-10-26 08:27 | Emergency (ER) | payer SELFPAY ==
[2016-10-26 08:33] VITALS: BP 122/80; BMI 22.1
--- NOTE | 2016-10-26 09:15 | DR.GENAD ---
HPI - PCP Primary Care Physician: TONIA - Complaint/Symptoms Chief Complaint Doctors Comments: Patient hit his left lower extremity posteriorally on a trailer on yesterday causing pain at the site. There is no swelling or erythema at the site. 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 Patient denies dyspnea Chief Complaint:: PT C/O LT LEG PAIN. PT STATES HE HAD A BLOOD CLOT IN THE SAME LEG AND HIS LUNG AND WAS DISCHARGED FORM THE HOSPITAL LAST MONTH ON THE . PT HIT LEG YESTERDAY AND IS HAVING SEVERE PAIN AND IS CONCERNED ABOUT THE BLOOD CLOT. PT STATES HE IS HAVING TROUBLE AMBULATING ON LT LEG - Source History Provided: Patient - Mode of Arrival Mode of Arrival: Ambulatory - Timing Onset of Chief Complaint: 10/25/16 PMH - PMH Past Medical History: Yes Past Medical History: GERD Past Surgical History: Yes Surgical History: Abdominal Surgery, Appendectomy, Tonsillectomy - Family History History of Family Medical Conditions: Yes Family Medical History: Diabetes Mellitus, Cancer, [place], Heart Failure, Hypertension - Social History Does patient currently use any type of tobacco product: Yes Have you used tobacco products in the last 12 months: Yes Type of Tobacco Use: Cigarettes Does any household member use tobacco: Yes Alcohol Use: None Do you use any recreational Drugs:: No Lives With: Alone Lives Where: Home - infectious screening In the last 2 months have you had wt loss of >10#?: NO Have you had fever, night sweats or hemotysis?: No Have you traveled outside the country in the last 6 months?: No Isolation: Standard ROS - Review of Systems Eyes: No Symptoms Reported ENTM: No Symptoms Reported Respiratoy: No Symptoms Reported Cardiovascular: No Symptoms Reported Gastrointestinal/Abdominal: No Symptoms Reported Genitourinary: No Symptoms Reported Neurological: No Symptoms Reported, Emotional Problems Musculoskeletal: No Symptoms Reported Integumentary: Wound (abrasion distal 1/3 of left LLE) Hematologic/Lymphatic: See HPI Endocrine: No Symptoms Reported Psychiatric: No Symptoms Reported All Other Systems: Reviewed and Negative PE - Vital Signs Vitals: Temperature 98.3 F Pulse Rate 95 Respiratory Rate 20 Blood Pressure [Right Arm] 130/77 Blood Pressure 122/80 O2 Sat by Pulse Oximetry 98 - General Limitations: No Limitations General Appearance: Alert - Head Head Exam: Normal Inspection, Atraumatic - Eyes Eye exam: Normal Appearance, PERRL, EOMI - ENT ENT Exam: Normal Exam External Ear Exam: Normal External Inspection TM/Canal Exam: Bilateral Normal Nose Exam: Normal Nose Exam Mouth Exam: Normal Inspection Throat Exam: Normal Inspection - Neck Neck Exam: Normal Inspection - Chest Chest Inspection: Normal Inspection - Respiratory Respiratory Exam: Normal Lung Sounds Bilat Respiratory Exam: Bilateral Clear to Auscultation - Cardiovascular Cardiovascular Exam: Regular Rate - Abdominal Exam Abdominal Exam: Normal Inspection, Normal Bowel Sounds Abdominal Tenderness: negative: RUQ, RLQ, LUQ, LLQ, Epigastrium, Suprapubic, Diffuse, Mild, Moderate, Severe, Other - Extremities Extremities Exam: Other (left lower posterior tibia with contusion point) - Back Back Exam: Normal Inspection - Neurologic Neurological Exam: Alert, Oriented X3, CN II-XII Intact - Psychiatric Psychiatric Exam: Normal Mood - Diagnosis Discharge Problem: Contusion of skin with intact surface - Discharge Plan Condition: Stable - Follow ups/Referrals Follow ups/Referrals: PEDRITO MELO [Primary Care Provider] - 3 days - Instructions
== END 2016-10-26 09:32 | disposition home or self-care (01) ==
LOC: ER 08:40
DX: S80.12XA Contusion of left lower leg, initial encounter (principal); X58.XXXA Exposure to other specified factors, initial encounter; Y92.9 Unspecified place or not applicable
CPT/HCPCS: 99282